=== PATIENT | male | born 1960 | race Caucasian/White ===

== ENCOUNTER 2017-02-20 19:20 | Emergency (ER) | payer BC ==
[~2017-02-20] VITALS: Ht 167.6 cm; Wt 103.9 kg
[2017-02-20 19:30] VITALS: BP_SYST 171
[2017-02-20] MEDS ORDERED: DOXY100T2 PO (19:53)
[2017-02-20] MEDS ORDERED: LOSA1TAB3 PO (19:53)
[2017-02-20] MEDS: cloNIDine HCL 0.1 MG TABLET PO ONE (20:22)
[2017-02-20 22:20] VITALS: BP_SYST 126
== END 2017-02-20 22:20 | disposition home or self-care (01) ==
LOC: SED 19:20
DX: I16.0 Hypertensive urgency (principal); R51 Headache; Z88.5 Allergy status to narcotic agent; Z88.6 Allergy status to analgesic agent; Z79.899 Other long term (current) drug therapy
CPT/HCPCS: 99283

== ENCOUNTER 2017-02-21 17:50 | Emergency (ER) | payer BC ==
[~2017-02-21] VITALS: Ht 167.6 cm; Wt 103.9 kg
[2017-02-21 17:50] VITALS: BP_SYST 177
[~2017-02-21 17:50] MED LIST: DOXY100T2 PO; LOSA1TAB3 PO
--- NOTE | 2017-02-21 17:50 | NUR ---
Pt placed to ER bed 06, to gown, to cardiac cath lab manager.
--- NOTE | 2017-02-21 17:55 | NUR ---
Pt report received from VIVI Bowling. Pt here with c/o HTN and H/A x 1 week. Pt saw PMD yesterday and states that his B/P meds were changed. Pt denies c/o C/P or SOB. Denies c/o N/V. No needs verbalized at this time. Family member at bedside.
--- NOTE | 2017-02-21 18:21 | NUR ---
Dr. Stovall at bedside to assess pt.
--- NOTE | 2017-02-21 18:28 | NUR ---
Pt to CT via stretcher.
[2017-02-21 18:33] LABS: BASOPHILS # (AUTO) 0.1 K/uL (0.0-0.2); BASOPHILS % (AUTO) 1.1 % (0.0-2.0); EOSINOPHILS # (AUTO) 0.4 K/uL (0.0-0.4); EOSINOPHILS % (AUTO) 4.7 % (0.0-4.0); HEMATOCRIT 49.5 % (36-54); HEMOGLOBIN 16.3 g/dL (14.0-18.0); LYMPHOCYTES # (AUTO) 2.7 K/uL (1.0-5.5); LYMPHOCYTES % (AUTO) 33.4 % (20.5-51.5); MEAN CORPUSCULAR HEMOGLOBIN 30 pg (27-31); MEAN CORPUSCULAR HGB CONC 33 % (32-36); MEAN CORPUSCULAR VOLUME 91 fL (79.0-98.0); MONOCYTES # (AUTO) 0.6 K/uL (0.0-1.0); MONOCYTES % (AUTO) 7.8 % (1.7-9.3); NEUTROPHILS # (AUTO) 4.3 K/uL (1.8-7.7); PLATELET COUNT (AUTO) 194 K/uL (130-430); RED BLOOD CELL COUNT(AUTO) 5.42 MIL/uL (4.2-6.2); RED CELL DISTRIBUTION WIDTH 12.9 % (9.0-15.0); WHITE BLOOD COUNT (AUTO) 8.1 K/uL (4.8-10.8)
[2017-02-21 18:39] LABS: ANION GAP 11 (5-15); CHLORIDE 102 mmol/L (98-107); CREATININE 0.99 mg/dL (0.55-1.30); GLUCOSE 100 mg/dL (70-99); POTASSIUM 3.5 mmol/L (3.5-5.1); SODIUM SERUM 141 mmol/L (136-145); UREA NITROGEN, BLOOD 11 mg/dL (8-21)
--- NOTE | 2017-02-21 18:39 | NUR ---
Pt returns from CT.
[2017-02-21 18:47] LABS: ALANINE AMINOTRANSFERASE 209 U/L (12-78); ASPARTATE AMINOTRANSFERASE 90 U/L (10-37); TOTAL BILIRUBIN 1.3 mg/dL (0.0-1.0); TOTAL PROTEIN, SERUM 7.7 g/dL (6.4-8.3)
[2017-02-21 18:55] LABS: GFR AFRICAN AMERICAN 101 mL/min (>90)
[2017-02-21 18:59] LABS: BILIRUBIN,URINE NEGATIVE (NEGATIVE); BLOOD, URINE NEGATIVE (NEGATIVE); CLARITY/URINE CLEAR (CLEAR); COLOR,URINE YELLOW (YELLOW); GLUCOSE,URINE NEGATIVE (NEGATIVE); KETONES,URINE NEGATIVE (NEGATIVE); LEUKOCYTE ESTERASE ,URINE NEGATIVE (NEGATIVE); NITRITE, URINE NEGATIVE (NEGATIVE); PROTEIN URINE NEGATIVE (NEGATIVE); UROBILINOGEN,URINE 0.2 (0.2-1.0)
[2017-02-21] MEDS ORDERED: cloNIDine HCL 0.1 MG TABLET PO ONE (19:30)
[2017-02-21 19:45] VITALS: BP_SYST 135
--- NOTE | 2017-02-21 19:45 | NUR ---
Patient given written and verbal discharge instructions and verbalizes understanding. ER MD Stovall discussed with patient the results and treatment provided. Patient in stable condition. ID arm band removed. Rx of clonidine given. Patient educated on pain management and to follow up with PMD. Pain Scale 0/10. Opportunity for questions provided and answered.
--- NOTE | 2017-02-21 19:50 | NUR ---
Kendra peterson in ED - 02/21/17 at 1958 by TAWANNA Pt placed to ER bed , to kiik, to monitor.
== END 2017-02-21 19:45 | disposition home or self-care (01) ==
LOC: SED 17:50
DX: I16.0 Hypertensive urgency (principal); I10 Essential (primary) hypertension; Z88.5 Allergy status to narcotic agent; Z88.6 Allergy status to analgesic agent
CPT/HCPCS: 36415; 70450-TC; 80053; 81003; 84484; 85025; 93005; 99285

== ENCOUNTER 2022-10-18 20:05 | Emergency (ER) | payer BC ==
[~2022-10-18] VITALS: Ht 167.6 cm; Wt 95.3 kg
[2022-10-18 20:14] VITALS: BP_SYST 158
--- NOTE | 2022-10-18 20:17 | NUR ---
Patient triaged and placed in waiting room. VSS and patient appears in no acute distress at this time. Accompanied by SELF, awaiting available bed, and MD notified of need for MSE.
[2022-10-18 21:48] LABS: BASOPHILS # (AUTO) 0.1 K/uL (0.0-0.2); EOSINOPHILS # (AUTO) 0.2 K/uL (0.0-0.4); HEMATOCRIT 45.8 % (36-54); HEMOGLOBIN 15.5 g/dL (14.0-18.0); LYMPHOCYTES # (AUTO) 2.2 K/uL (1.0-5.5); LYMPHOCYTES % (AUTO) 26.9 % (20.5-51.5); MEAN CORPUSCULAR HEMOGLOBIN 32 pg (27-31); MEAN CORPUSCULAR HGB CONC 34 % (32-36); MEAN CORPUSCULAR VOLUME 93 fL (79.0-98.0); MONOCYTES # (AUTO) 0.6 K/uL (0.0-1.0); MONOCYTES % (AUTO) 6.9 % (1.7-9.3); NEUTROPHILS # (AUTO) 5.2 K/uL (1.8-7.7); NEUTROPHILS % (AUTO) 62.2 % (40.0-70.0); PLATELET COUNT (AUTO) 186 K/uL (130-430); RED BLOOD CELL COUNT(AUTO) 4.92 MIL/uL (4.2-6.2); RED CELL DISTRIBUTION WIDTH 13.5 % (9.0-15.0); WHITE BLOOD COUNT (AUTO) 8.3 K/uL (4.8-10.8)
[2022-10-18 22:09] LABS: ALBUMIN 4.1 g/dL (3.4-4.8); CALCIUM 8.5 mg/dL (8.4-11.0); CREATININE 0.97 mg/dL (0.55-1.30); TOTAL BILIRUBIN 1.4 mg/dL (0.0-1.0)
[2022-10-18] MEDS ORDERED: FAMOTIDINE PF 20 MG/2 ML VIAL IVP ONE (22:15)
[2022-10-18] MEDS ORDERED: NACL 0.9% 1,000 ML IV ONE (22:15)
[2022-10-18] MEDS ORDERED: ONDANSETRON HCL 4 MG/2 ML VIAL IVP ONE (22:15)
[2022-10-18] MEDS ORDERED: ONDANSETRON 4 MG ODT TAB PO ONE (22:30)
[2022-10-18 22:39] LABS: BILIRUBIN,URINE NEGATIVE (NEGATIVE); BLOOD, URINE NEGATIVE (NEGATIVE); CLARITY/URINE CLEAR (CLEAR); COLOR,URINE YELLOW (YELLOW); GLUCOSE,URINE NEGATIVE (NEGATIVE); KETONES,URINE 1+ (NEGATIVE); LEUKOCYTE ESTERASE ,URINE NEGATIVE (NEGATIVE); NITRITE, URINE NEGATIVE (NEGATIVE); PROTEIN URINE NEGATIVE (NEGATIVE); UROBILINOGEN,URINE 0.2 (0.2-1.0)
[2022-10-18] MEDS ORDERED: ONDA-8 TL (23:50)
[2022-10-18] MEDS ORDERED: DICY10CA13 PO (23:50)
[2022-10-18] MEDS ORDERED: IBUP-1969 PO (23:50)
[2022-10-19 00:05] VITALS: BP_SYST 134
--- NOTE | 2022-10-19 00:08 | NUR ---
Patient given written and verbal discharge instructions and verbalizes understanding. ER MD JOHNSON discussed with patient the results and treatment provided. Patient in stable condition. ID arm band removed. Rx of DICYCLOMINE HCL, IBUPROPHEN AND ZOFRANgiven. Patient educated on pain management and to follow up with PMD. Pain Scale . Opportunity for questions provided and answered. Medication side effect fact sheet provided.
== END 2022-10-19 00:04 | disposition home or self-care (01) ==
LOC: SED 20:05
DX: K57.90 Diverticulosis of intestine, part unspecified, without perforation or abscess without bleeding (principal); R10.31 Right lower quadrant pain; R50.9 Fever, unspecified; R11.0 Nausea; I10 Essential (primary) hypertension; L92.0 Granuloma annulare; N40.1 Benign prostatic hyperplasia with lower urinary tract symptoms; Q44.6 Cystic disease of liver; Z88.5 Allergy status to narcotic agent; Z88.6 Allergy status to analgesic agent; Z79.899 Other long term (current) drug therapy
CPT/HCPCS: 99285; 74176; 71045; 80053; 85025; 87040; 87086; 36415; 76376; 83605; 81003; Q0162